=== PATIENT | female | born 1995 | race Two or more races ===

== ENCOUNTER 2021-04-19 11:00 | Outpatient (CLI) | payer OTHER | END 2021-04-19 14:16 | disposition home or self-care (01) | LOC: PPH VACUNA 11:00 | PROVIDERS: ATTEND Emergency Medicine Pediatric Emergency Medicine | DX: Z23 Encounter for immunization (principal) ==

== ENCOUNTER 2021-05-30 06:33 | Emergency (ER) | payer OTHER ==
[~2021-05-30] VITALS: Ht 154.9 cm; Wt 90.7 kg
== END 2021-05-30 09:00 | disposition expired ==
LOC: ER 06:33
DX: S61.234A Puncture wound without foreign body of right ring finger without damage to nail, initial encounter (principal); Y99.0 Civilian activity done for income or pay; W46.0XXA Contact with hypodermic needle, initial encounter

== ENCOUNTER 2021-07-26 14:00 | Outpatient (CLI) | payer OTHER | END 2021-07-26 14:15 | disposition home or self-care (01) | LOC: PPH VACUNA 14:00 | PROVIDERS: ATTEND Emergency Medicine Pediatric Emergency Medicine | DX: Z23 Encounter for immunization (principal) ==

== ENCOUNTER 2022-02-12 09:23 | Outpatient (CLI) | payer OTHER | END 2022-02-12 15:28 | disposition home or self-care (01) | LOC: LAB 09:23 | DX: U07.1 COVID-19 (principal) ==

== ENCOUNTER 2022-04-19 08:00 | Outpatient (CLI) | payer OTHER | END 2022-04-19 08:05 | disposition home or self-care (01) | LOC: PPH VACUNA 08:00 | PROVIDERS: ATTEND Emergency Medicine Pediatric Emergency Medicine | DX: Z23 Encounter for immunization (principal) ==

== ENCOUNTER 2022-10-31 21:02 | Emergency (ER) | payer OTHER ==
[~2022-10-31] VITALS: Ht 154.9 cm; Wt 95.3 kg
== END 2022-10-31 23:54 | disposition home or self-care (01) ==
LOC: ER 21:02
DX: M94.0 Chondrocostal junction syndrome [Tietze] (principal)